=== PATIENT | female | born 1965 ===

== ENCOUNTER 2021-02-18 15:55 | Emergency (ER) | payer OTHER ==
[~2021-02-18] VITALS: Ht 152.4 cm; Wt 72.6 kg
[2021-02-18 16:37] VITALS: BP 155/85
[2021-02-18] MEDS ORDERED: cefTRIAXone SOD 1,000 MG VL IM ONE (17:00)
== END 2021-02-18 17:30 | disposition home or self-care (01) ==
LOC: ER 15:55
DX: U07.1 COVID-19 (principal); J12.82 Pneumonia due to coronavirus disease 2019
CPT/HCPCS: 71045; 96372; 99283; J0696